=== PATIENT | female | born 1955 | race Asian ===

== ENCOUNTER 2017-07-30 19:33 | Inpatient (IN) | payer OTHER ==
[~2017-07-30] VITALS: Ht 154.9 cm; Wt 60.5 kg
[2017-07-30] MEDS ORDERED: FLUT16H NASAL (19:55)
[2017-07-30] MEDS ORDERED: LISI-661 PO (19:55)
[2017-07-30] MEDS ORDERED: ALBU8.5H8 IH (19:55)
[2017-07-30] MEDS ORDERED: GLIP5 PO (19:55)
[2017-07-30] MEDS ORDERED: ASPI-556 PO (19:55)
[2017-07-30] MEDS ORDERED: KETO5DRO6 OU (19:55)
[2017-07-30 19:57] LABS: GLUCOSE,POINT OF CARE 175 MG/DL (70-110)
[2017-07-30 20:26] LABS: BASOPHILS % (AUTO) 1.3 % (0.0-2.0); HEMATOCRIT 32.6 % (36-46); HEMOGLOBIN 11.2 g/dL (12.0-16.0); LYMPHOCYTES # (AUTO) 1.1 K/uL (1.0-4.8); LYMPHOCYTES % (AUTO) 15.4 % (22.0-44.0); MEAN CORPUSCULAR HEMOGLOBIN 31.4 pg (26.0-34.0); MEAN CORPUSCULAR HGB CONC 34.3 G/dL (31.0-37.0); MEAN CORPUSCULAR VOLUME 92 fL (80-100); MONOCYTES # (AUTO) 0.5 K/uL (0.1-1.0); MONOCYTES % (AUTO) 7.7 % (2.0-9.0); NEUTROPHILS # (AUTO) 5.2 K/uL (1.8-7.7); NEUTROPHILS % (AUTO) 74.6 % (40.0-70.0); PLATELET COUNT (AUTO) 271 K/uL (150-450); RED BLOOD CELL COUNT(AUTO) 3.55 MIL/uL (4.00-5.20); RED CELL DISTRIBUTION WIDTH 12.5 % (11.5-14.5)
[2017-07-30 20:42] LABS: ALBUMIN 2.8 g/dL (3.4-5.0); BILIRUBIN,TOTAL 0.8 mg/dL (0.1-1.0); CALCIUM, TOTAL 9.3 mg/dL (8.8-10.5); CREATININE 2.39 mg/dL (0.60-1.30); POTASSIUM 3.5 mmol/L (3.5-5.1); TOTAL PROTEIN, SERUM 8.1 g/dL (6.4-8.2)
[2017-07-30] MEDS ORDERED: SODIUM CHLORIDE 0.9% 1,000 ML IV ONE (21:45)
[2017-07-30] MEDS ORDERED: MORPHINE SULFATE 4 MG/ML SYRINGE IVP ONE (22:00)
[2017-07-30 22:16] LABS: OSMOLALITY,URINE 170 mOS/kg (50-1200)
[2017-07-30 22:27] LABS: APPEARANCE,URINE CLEAR (CLEAR); BILIRUBIN,URINE NEGATIVE (NEGATIVE); GLUCOSE, URINE (UA) NEGATIVE (NEGATIVE); KETONES,URINE NEGATIVE (NEGATIVE); LEUKOCYTE ESTERASE ,URINE NEGATIVE (NEGATIVE); NITRATE,URINE NEGATIVE (NEGATIVE); OCCULT BLOOD,URINE NEGATIVE (NEGATIVE); PROTEIN,URINE NEGATIVE (NEGATIVE)
[2017-07-30 22:28] LABS: SODIUM,URINE RANDOM 31 mmol/l (20-110)
[2017-07-31] VITALS (7 sets, daily range): BP systolic 88–112; BP diastolic 41–63
[2017-07-31] MEDS ORDERED: PIPERACILLIN/TAZO 3.375 GM/D5W 50 ML IV ONE
[2017-07-31] MEDS ORDERED: ONDANSETRON HCL 4 MG/2 ML VIAL IVP PRN ×2 (01:00→07:30)
[2017-07-31] MEDS ORDERED: ACETAMINOPHEN 325 MG TABLET PO PRN (01:00)
[2017-07-31] MEDS ORDERED: SODIUM CHLORIDE 0.9% 1,000 ML IV ONE ×2 (01:00→07:45)
[2017-07-31] MEDS ORDERED: MORPHINE SULFATE 4 MG/ML SYRINGE IVP PRN (01:00)
[2017-07-31] MEDS ORDERED: 0.9% SODIUM CHLORIDE 10 ML SYRINGE IVP PRN (01:00)
[2017-07-31 01:54] LABS: PROTHROMBIN TIME 10.9 SEC (9.4-11.6)
[2017-07-31] MEDS ORDERED: PNEUMOCOCCAL VACCINE POLYVALENT 0.5 ML VIAL [PPSV23] IM ONE (06:00)
[2017-07-31 06:33] LABS: GLUCOMETER DEV NAME(LOC) 5S 2P; GLUCOSE,POINT OF CARE 108 MG/DL (70-110)
[2017-07-31] MEDS ORDERED: BISACODYL 10 MG RECTAL RECTAL SUPPOSITORY PR PRN (07:30)
[2017-07-31] MEDS ORDERED: DEXTROSE 50%-WATER 25 GM/50 ML SYRINGE IVP PRN (07:45)
[2017-07-31] MEDS ORDERED: RINGERS SOLUTION,LACTATED 0 ML IV ONE (11:22)
[2017-07-31] MEDS ORDERED: SODIUM CL IRRIG SOLN BAG 3,000 ML IRRIG ONE (11:26)
[2017-07-31] MEDS ORDERED: RINGERS SOLUTION,LACTATED 1,000 ML IV ONE ×2 (11:26→11:30)
[2017-07-31] MEDS ORDERED: LIDOCAINE HCL 1%/EPI 1:200,000/PF 30 ML VIAL ONE (11:26)
[2017-07-31] MEDS ORDERED: IOHEXOL 240 MG/ML 20 ML VIAL ONE (11:26)
[2017-07-31 13:27] LABS: GLUCOMETER DEV NAME(LOC) 5S 1M; GLUCOSE,POINT OF CARE 118 MG/DL (70-110)
[2017-07-31] MEDS: PANTOPRAZOLE SODIUM 40 MG/VIAL IVP SCH (14:30)
[2017-07-31] MEDS: DOCUSATE SODIUM 100 MG CAPSULE PO SCH ×2 (14:30→20:28)
[2017-07-31] MEDS: PIPERACILLIN SODIUM/TAZOBACTAM 2.25 GM in DEXTROSE 5%-WATER 50 ML IV SCH ×2 (14:31→17:43)
[2017-07-31] MEDS: ACETAMINOPHEN 325 MG TABLET PO PRN (23:21)
[2017-08-01] MEDS: PIPERACILLIN SODIUM/TAZOBACTAM 2.25 GM in DEXTROSE 5%-WATER 50 ML IV SCH ×4 (02:01→21:54)
[2017-08-01 05:39] VITALS: BP 88/60
[2017-08-01 06:23] LABS: BASOPHILS % (AUTO) 1.5 % (0.0-2.0); EOSINOPHILS % (AUTO) 2.2 % (1.0-6.0); HEMATOCRIT 30.5 % (36-46); HEMOGLOBIN 10.4 g/dL (12.0-16.0); LYMPHOCYTES # (AUTO) 1.2 K/uL (1.0-4.8); LYMPHOCYTES % (AUTO) 30.7 % (22.0-44.0); MEAN CORPUSCULAR HEMOGLOBIN 31.6 pg (26.0-34.0); MEAN CORPUSCULAR HGB CONC 34.2 G/dL (31.0-37.0); MEAN CORPUSCULAR VOLUME 92 fL (80-100); MONOCYTES # (AUTO) 0.3 K/uL (0.1-1.0); MONOCYTES % (AUTO) 7.6 % (2.0-9.0); NEUTROPHILS # (AUTO) 2.2 K/uL (1.8-7.7); PLATELET COUNT (AUTO) 210 K/uL (150-450); RED CELL DISTRIBUTION WIDTH 12.7 % (11.5-14.5)
[2017-08-01 06:32] LABS: CALCIUM, TOTAL 8.9 mg/dL (8.8-10.5); CREATININE 1.62 mg/dL (0.60-1.30); POTASSIUM 4.7 mmol/L (3.5-5.1)
[2017-08-01 07:17] VITALS: BP 103/59
[2017-08-01] MEDS: DOCUSATE SODIUM 100 MG CAPSULE PO SCH ×2 (07:30→20:19)
[2017-08-01] MEDS: PANTOPRAZOLE SODIUM 40 MG/VIAL IVP SCH (07:58)
[2017-08-01] MEDS: ACETAMINOPHEN 325 MG TABLET PO PRN ×2 (07:58→17:58)
[2017-08-01 08:52] LABS: GLUCOMETER DEV NAME(LOC) 5S 2P; GLUCOSE,POINT OF CARE 119 MG/DL (70-110)
[2017-08-01 08:52] LABS: GLUCOMETER DEV NAME(LOC) 5S 2P; GLUCOSE,POINT OF CARE 94 MG/DL (70-110)
[2017-08-01] MEDS ORDERED: SODIUM CHLORIDE 0.9% 100 ML ONE (10:26)
[2017-08-01] MEDS: INSULIN LISPRO 100 UNITS/ML SQ PRN ×2 (11:46→20:32)
[2017-08-01 11:53] VITALS: BP 90/54
[2017-08-01 15:29] VITALS: BP 97/55
[2017-08-01 16:13] LABS: GLUCOMETER DEV NAME(LOC) 5N 1P; GLUCOSE,POINT OF CARE 168 MG/DL (70-110)
[2017-08-01 16:13] LABS: GLUCOMETER DEV NAME(LOC) 5N 1P; GLUCOSE,POINT OF CARE 96 MG/DL (70-110)
[2017-08-01 19:58] LABS: GLUCOMETER DEV NAME(LOC) 5S 2P; GLUCOSE,POINT OF CARE 109 MG/DL (70-110)
[2017-08-01 20:07] VITALS: BP 95/51
[2017-08-02 00:49] VITALS: BP 96/54
[2017-08-02 03:48] LABS: GLUCOMETER DEV NAME(LOC) 5S 2P; GLUCOSE,POINT OF CARE 168 MG/DL (70-110)
[2017-08-02] MEDS: PIPERACILLIN SODIUM/TAZOBACTAM 2.25 GM in DEXTROSE 5%-WATER 50 ML IV SCH ×4 (03:54→20:57)
[2017-08-02 03:58] VITALS: BP 111/60
[2017-08-02 07:09] VITALS: BP 107/56
[2017-08-02 07:13] LABS: EOSINOPHILS % (AUTO) 2.4 % (1.0-6.0); HEMATOCRIT 34.4 % (36-46); HEMOGLOBIN 11.9 g/dL (12.0-16.0); LYMPHOCYTES % (AUTO) 26.9 % (22.0-44.0); MEAN CORPUSCULAR HEMOGLOBIN 32.1 pg (26.0-34.0); MEAN CORPUSCULAR HGB CONC 34.5 G/dL (31.0-37.0); MEAN CORPUSCULAR VOLUME 93 fL (80-100); MONOCYTES # (AUTO) 0.3 K/uL (0.1-1.0); MONOCYTES % (AUTO) 7.4 % (2.0-9.0); NEUTROPHILS # (AUTO) 2.4 K/uL (1.8-7.7); NEUTROPHILS % (AUTO) 61.3 % (40.0-70.0); PLATELET COUNT (AUTO) 209 K/uL (150-450); RED CELL DISTRIBUTION WIDTH 12.8 % (11.5-14.5)
[2017-08-02 07:28] LABS: ALBUMIN 2.5 g/dL (3.4-5.0); BILIRUBIN,TOTAL 0.6 mg/dL (0.1-1.0); CALCIUM, TOTAL 9.3 mg/dL (8.8-10.5); CREATININE 1.54 mg/dL (0.60-1.30); POTASSIUM 4.7 mmol/L (3.5-5.1); TOTAL PROTEIN, SERUM 7.1 g/dL (6.4-8.2)
[2017-08-02] MEDS: PANTOPRAZOLE SODIUM 40 MG/VIAL IVP SCH (08:33)
[2017-08-02] MEDS: FLUoxetine HCL 20 MG CAPSULE PO SCH (08:33)
[2017-08-02] MEDS: DOCUSATE SODIUM 100 MG CAPSULE PO SCH ×2 (08:33→20:57)
[2017-08-02 11:02] VITALS: BP 102/66
[2017-08-02] MEDS: INSULIN LISPRO 100 UNITS/ML SQ PRN ×2 (12:12→21:01)
[2017-08-02 15:04] VITALS: BP 116/77
[2017-08-02] MEDS: ACETAMINOPHEN 325 MG TABLET PO PRN (16:52)
[2017-08-02 20:13] LABS: GLUCOMETER DEV NAME(LOC) 5N 1P; GLUCOSE,POINT OF CARE 128 MG/DL (70-110)
[2017-08-02 20:27] VITALS: BP 94/51
[2017-08-02 23:24] LABS: GLUCOMETER DEV NAME(LOC) 5N 2S; GLUCOSE,POINT OF CARE 84 MG/DL (70-110)
[2017-08-02 23:24] LABS: GLUCOMETER DEV NAME(LOC) 5N 2S; GLUCOSE,POINT OF CARE 172 MG/DL (70-110)
[2017-08-02 23:24] LABS: GLUCOMETER DEV NAME(LOC) 5N 2S; GLUCOSE,POINT OF CARE 182 MG/DL (70-110)
[2017-08-03] VITALS (7 sets, daily range): BP systolic 96–138; BP diastolic 52–80
[2017-08-03] MEDS: PIPERACILLIN SODIUM/TAZOBACTAM 2.25 GM in DEXTROSE 5%-WATER 50 ML IV SCH ×3 (05:09→22:14)
[2017-08-03] MEDS: FLUoxetine HCL 20 MG CAPSULE PO SCH (08:03)
[2017-08-03] MEDS: DOCUSATE SODIUM 100 MG CAPSULE PO SCH ×2 (08:03→20:06)
[2017-08-03] MEDS: PANTOPRAZOLE SODIUM 40 MG/VIAL IVP SCH (08:11)
[2017-08-03 13:08] LABS: GLUCOMETER DEV NAME(LOC) 5N 2S; GLUCOSE,POINT OF CARE 129 MG/DL (70-110)
[2017-08-03 13:08] LABS: GLUCOMETER DEV NAME(LOC) 5N 2S; GLUCOSE,POINT OF CARE 94 MG/DL (70-110)
[2017-08-03] MEDS ORDERED: RINGERS SOLUTION,LACTATED 1,000 ML IV ONE ×2 (13:30→16:44)
[2017-08-03] MEDS ORDERED: IOHEXOL 240 MG/ML 20 ML VIAL ONE (13:33)
[2017-08-03] MEDS ORDERED: SODIUM CL IRRIG SOLN BAG 3,000 ML IRRIG ONE (13:33)
[2017-08-03] MEDS ORDERED: LIDOCAINE HCL 1%/EPI 1:200,000/PF 30 ML VIAL ONE (13:33)
[2017-08-03] MEDS ORDERED: SODIUM CHLORIDE 0.9% 1,000 ML IV ONE (16:33)
[2017-08-03] MEDS ORDERED: BUPIVACAINE LIPOSOME/PF 1.3%-13.3MG/ML SUSPENSION 20 ML VIAL INJ ONE (16:45)
[2017-08-03] MEDS ORDERED: BUPIVACAINE HCL/PF 0.5% 30 ML VIAL ONE (16:52)
[2017-08-03] MEDS ORDERED: FentaNYL CITRATE-PF 100 MCG/2 ML VIAL IVP PRN (17:45)
[2017-08-03] MEDS ORDERED: HYDROmorphone 2 MG/ML SYRINGE IVP PRN (17:45)
[2017-08-03] MEDS: OXYGEN THERAPY IH SCH (20:00)
[2017-08-03] MEDS: MORPHINE SULFATE 4 MG/ML SYRINGE IVP PRN (20:51)
[2017-08-03] MEDS ORDERED: SODIUM CHLORIDE 0.9% 250 ML IV ONE (22:13)
[2017-08-04] VITALS (10 sets, daily range): BP systolic 103–165; BP diastolic 57–90
[2017-08-04] MEDS: MORPHINE SULFATE 4 MG/ML SYRINGE IVP PRN ×4 (00:10→09:38)
[2017-08-04] MEDS: PIPERACILLIN SODIUM/TAZOBACTAM 2.25 GM in DEXTROSE 5%-WATER 50 ML IV SCH ×4 (04:19→21:06)
[2017-08-04] MEDS ORDERED: METOCLOPRAMIDE HCL 5 MG/ML 2 ML VIAL IVP ONE (05:34)
[2017-08-04] MEDS ORDERED: FentaNYL CITRATE-PF 100 MCG/2 ML VIAL IVP ONE (05:34)
[2017-08-04] MEDS ORDERED: NEOSTIGMINE METHYLSULFATE 1 MG/ML 10 ML VIAL IVP ONE (05:34)
[2017-08-04] MEDS ORDERED: DEXAMETHASONE SOD PHOS 4 MG/ML VIAL IVP ONE (05:34)
[2017-08-04] MEDS ORDERED: ONDANSETRON HCL 4 MG/2 ML VIAL IVP ONE (05:34)
[2017-08-04] MEDS ORDERED: PROPOFOL 1% 20 ML VIAL IVP ONE (05:34)
[2017-08-04] MEDS ORDERED: ROCURONIUM BROMIDE 10 MG/ML 5 ML VIAL IVP ONE (05:34)
[2017-08-04] MEDS ORDERED: GLYCOPYRROLATE 0.2 MG/ML VIAL IM ONE (05:34)
[2017-08-04] MEDS ORDERED: LIDOCAINE HCL/PF 2% 5 ML VIAL IM ONE (05:34)
[2017-08-04] MEDS ORDERED: MIDAZOLAM HCL 2 MG/2 ML VIAL IVP ONE (05:34)
[2017-08-04 05:52] LABS: BASOPHILS % (AUTO) 0.4 % (0.0-2.0); EOSINOPHILS % (AUTO) 0 % (1.0-6.0); HEMATOCRIT 31.1 % (36-46); HEMOGLOBIN 10.6 g/dL (12.0-16.0); LYMPHOCYTES % (AUTO) 3.6 % (22.0-44.0); MEAN CORPUSCULAR HEMOGLOBIN 31.5 pg (26.0-34.0); MEAN CORPUSCULAR HGB CONC 34.1 G/dL (31.0-37.0); MEAN CORPUSCULAR VOLUME 92 fL (80-100); MONOCYTES % (AUTO) 3.5 % (2.0-9.0); NEUTROPHILS # (AUTO) 26.5 K/uL (1.8-7.7); PLATELET COUNT (AUTO) 276 K/uL (150-450); RED BLOOD CELL COUNT(AUTO) 3.36 MIL/uL (4.00-5.20); RED CELL DISTRIBUTION WIDTH 12.9 % (11.5-14.5)
[2017-08-04 05:54] LABS: NEUTROPHILS % (AUTO) 92.5 % (40.0-70.0)
[2017-08-04 06:14] LABS: ALBUMIN 2.3 g/dL (3.4-5.0); BILIRUBIN,TOTAL 0.6 mg/dL (0.1-1.0); CALCIUM, TOTAL 8.3 mg/dL (8.8-10.5); CREATININE 2.45 mg/dL (0.60-1.30); TOTAL PROTEIN, SERUM 6.9 g/dL (6.4-8.2)
[2017-08-04 06:25] LABS: POTASSIUM 6.2 mmol/L (3.5-5.1)
[2017-08-04 07:42] LABS: GLUCOMETER DEV NAME(LOC) 5N 2S; GLUCOSE,POINT OF CARE 207 MG/DL (70-110)
[2017-08-04] MEDS: OXYGEN THERAPY IH SCH ×2 (08:00→20:00)
[2017-08-04] MEDS: FLUoxetine HCL 20 MG CAPSULE PO SCH (08:33)
[2017-08-04] MEDS: DOCUSATE SODIUM 100 MG CAPSULE PO SCH ×2 (08:34→21:06)
[2017-08-04] MEDS: PANTOPRAZOLE SODIUM 40 MG/VIAL IVP SCH (08:52)
[2017-08-04] MEDS ORDERED: SODIUM CHLORIDE 0.9% 1,000 ML IV ONE (10:15)
[2017-08-04] MEDS: INSULIN LISPRO 100 UNITS/ML SQ PRN ×4 (10:32→21:23)
[2017-08-04 12:13] LABS: GLUCOMETER DEV NAME(LOC) 5S 1M; GLUCOSE,POINT OF CARE 240 MG/DL (70-110)
[2017-08-04 12:13] LABS: GLUCOMETER DEV NAME(LOC) 5S 1M; GLUCOSE,POINT OF CARE 262 MG/DL (70-110)
[2017-08-04] MEDS ORDERED: SODIUM CHLORIDE 0.9% 1,000 ML IV SCH (12:30)
[2017-08-04] MEDS: HYDROmorphone 2 MG/ML SYRINGE IVP PRN ×3 (13:04→21:08)
[2017-08-04] MEDS ORDERED: INSULIN REGULAR, HUMAN 100 UNITS/ML IVP ONE (14:15)
[2017-08-04] MEDS: HEPARIN SODIUM,PORCINE 5,000 UNITS/ML VIAL SQ SCH ×2 (15:38→21:06)
[2017-08-04 16:57] LABS: CALCIUM, TOTAL 8.9 mg/dL (8.8-10.5); CREATININE 3.21 mg/dL (0.60-1.30); POTASSIUM 4.8 mmol/L (3.5-5.1)
[2017-08-04] MEDS: SODIUM BICARBONATE 75 MEQ in SODIUM CHLORIDE 0.45% 1,000 ML IV SCH (18:50)
[2017-08-04 19:37] LABS: LACTIC ACID 3.9 mmol/L (0.4-2.0)
[2017-08-04 19:53] LABS: GLUCOMETER DEV NAME(LOC) 5S 1M; GLUCOSE,POINT OF CARE 185 MG/DL (70-110)
[2017-08-04 19:53] LABS: GLUCOMETER DEV NAME(LOC) 5S 1M; GLUCOSE,POINT OF CARE 250 MG/DL (70-110)
[2017-08-04 19:53] LABS: GLUCOMETER DEV NAME(LOC) 5N 2S; GLUCOSE,POINT OF CARE 219 MG/DL (70-110)
[2017-08-04 22:17] LABS: GLUCOMETER DEV NAME(LOC) 5N 2S; GLUCOSE,POINT OF CARE 177 MG/DL (70-110)
[2017-08-05] MEDS: HYDROmorphone 2 MG/ML SYRINGE IVP PRN ×5 (00:58→21:00)
[2017-08-05 01:03] LABS: CREATININE,URINE RANDOM 207.1 mg/dL (30.0-125.0)
[2017-08-05 01:04] LABS: PROTEIN,URINE RANDOM 82 mg/dL (0-11.9); SODIUM,URINE RANDOM 28 mmol/l (20-110)
[2017-08-05 01:16] LABS: APPEARANCE,URINE CLOUDY (CLEAR); PROTEIN,URINE POS 1+ (NEGATIVE)
[2017-08-05 01:17] LABS: BILIRUBIN,URINE NEGATIVE (NEGATIVE); GLUCOSE, URINE (UA) NEGATIVE (NEGATIVE); KETONES,URINE 15 mg/dL (NEGATIVE); LEUKOCYTE ESTERASE ,URINE NEGATIVE (NEGATIVE); NITRATE,URINE NEGATIVE (NEGATIVE); OCCULT BLOOD,URINE SMALL (NEGATIVE); UROBILINOGEN,URINE 0.2 mg/dL (<=1.0)
[2017-08-05 01:18] LABS: BACTERIA,URINE Rare /HPF (None Seen); SQUAMOUS EPITHELIAL CELL,UR Moderate /LPF (None Seen)
[2017-08-05] MEDS: PIPERACILLIN SODIUM/TAZOBACTAM 2.25 GM in DEXTROSE 5%-WATER 50 ML IV SCH ×3 (03:54→20:23)
[2017-08-05] MEDS: SODIUM BICARBONATE 75 MEQ in SODIUM CHLORIDE 0.45% 1,000 ML IV SCH ×2 (03:54→13:14)
[2017-08-05 04:09] VITALS: BP 129/69
[2017-08-05 06:29] LABS: BASOPHILS % (AUTO) 0.2 % (0.0-2.0); EOSINOPHILS % (AUTO) 0 % (1.0-6.0); HEMATOCRIT 24.9 % (36-46); HEMOGLOBIN 8.4 g/dL (12.0-16.0); LYMPHOCYTES # (AUTO) 1.6 K/uL (1.0-4.8); LYMPHOCYTES % (AUTO) 7.9 % (22.0-44.0); MEAN CORPUSCULAR HEMOGLOBIN 31.3 pg (26.0-34.0); MEAN CORPUSCULAR HGB CONC 33.9 G/dL (31.0-37.0); MEAN CORPUSCULAR VOLUME 92 fL (80-100); MONOCYTES % (AUTO) 5.2 % (2.0-9.0); NEUTROPHILS # (AUTO) 17.3 K/uL (1.8-7.7); PLATELET COUNT (AUTO) 179 K/uL (150-450); RED CELL DISTRIBUTION WIDTH 12.9 % (11.5-14.5)
[2017-08-05 06:43] LABS: GLUCOMETER DEV NAME(LOC) 5S 1M; GLUCOSE,POINT OF CARE 144 MG/DL (70-110)
[2017-08-05 06:48] LABS: CALCIUM, TOTAL 8.4 mg/dL (8.8-10.5); CREATININE 2.53 mg/dL (0.60-1.30); MAGNESIUM 1.2 mg/dL (1.80-2.40); POTASSIUM 4.7 mmol/L (3.5-5.1)
[2017-08-05 06:52] LABS: NEUTROPHILS % (AUTO) 86.7 % (40.0-70.0)
[2017-08-05] MEDS: OXYGEN THERAPY IH SCH ×2 (08:00→20:00)
[2017-08-05] MEDS: DOCUSATE SODIUM 100 MG CAPSULE PO SCH ×2 (08:10→21:02)
[2017-08-05] MEDS: FLUoxetine HCL 20 MG CAPSULE PO SCH (08:10)
[2017-08-05] MEDS: PANTOPRAZOLE SODIUM 40 MG/VIAL IVP SCH (08:10)
[2017-08-05] MEDS: HEPARIN SODIUM,PORCINE 5,000 UNITS/ML VIAL SQ SCH ×3 (08:10→21:02)
[2017-08-05 08:11] VITALS: BP 123/68
[2017-08-05] MEDS: ACETAMINOPHEN 325 MG TABLET PO PRN (08:11)
[2017-08-05] MEDS ORDERED: MAGNESIUM SULFATE 2 GM in DEXTROSE 5%-WATER 50 ML IV ONE (08:45)
[2017-08-05] MEDS ORDERED: SODIUM CHLORIDE 0.9% 100 ML ONE (09:44)
[2017-08-05 12:05] VITALS: BP 107/56
[2017-08-05] MEDS: INSULIN LISPRO 100 UNITS/ML SQ PRN (12:06)
[2017-08-05 16:13] VITALS: BP 107/59
[2017-08-05 17:08] VITALS: BP 122/72
[2017-08-05 20:30] VITALS: BP 111/62
[2017-08-06] VITALS (8 sets, daily range): BP systolic 92–136; BP diastolic 53–69
[2017-08-06] MEDS: HYDROmorphone 2 MG/ML SYRINGE IVP PRN ×4 (01:01→18:21)
[2017-08-06] MEDS: ACETAMINOPHEN 325 MG TABLET PO PRN ×3 (02:00→20:30)
[2017-08-06] MEDS: SODIUM BICARBONATE 75 MEQ in SODIUM CHLORIDE 0.45% 1,000 ML IV SCH (03:17)
[2017-08-06] MEDS: PIPERACILLIN SODIUM/TAZOBACTAM 2.25 GM in DEXTROSE 5%-WATER 50 ML IV SCH ×4 (03:20→21:49)
[2017-08-06 06:56] LABS: ALBUMIN 1.7 g/dL (3.4-5.0); BILIRUBIN,TOTAL 0.6 mg/dL (0.1-1.0); CALCIUM, TOTAL 7.7 mg/dL (8.8-10.5); CREATININE 1.49 mg/dL (0.60-1.30); POTASSIUM 3.6 mmol/L (3.5-5.1); TOTAL PROTEIN, SERUM 5.4 g/dL (6.4-8.2)
[2017-08-06] MEDS: OXYGEN THERAPY IH SCH ×2 (08:00→20:00)
[2017-08-06] MEDS: PANTOPRAZOLE SODIUM 40 MG/VIAL IVP SCH (08:06)
[2017-08-06] MEDS: DOCUSATE SODIUM 100 MG CAPSULE PO SCH ×2 (08:07→20:31)
[2017-08-06] MEDS: HEPARIN SODIUM,PORCINE 5,000 UNITS/ML VIAL SQ SCH ×3 (08:07→20:29)
[2017-08-06] MEDS: FLUoxetine HCL 20 MG CAPSULE PO SCH (08:07)
[2017-08-06 11:04] LABS: MAGNESIUM 1.5 mg/dL (1.80-2.40)
[2017-08-06] MEDS ORDERED: MAGNESIUM SULFATE 1 GM in DEXTROSE 5%-WATER 50 ML IV ONE (11:15)
[2017-08-06] MEDS: POTASSIUM CHLORIDE 10 MEQ in SODIUM CHLORIDE 0.9% 1,000 ML IV SCH ×2 (11:27→23:59)
[2017-08-06 11:33] LABS: GLUCOMETER DEV NAME(LOC) 5N 2S; GLUCOSE,POINT OF CARE 135 MG/DL (70-110)
[2017-08-06 11:33] LABS: GLUCOMETER DEV NAME(LOC) 5N 2S; GLUCOSE,POINT OF CARE 145 MG/DL (70-110)
[2017-08-06 11:33] LABS: GLUCOMETER DEV NAME(LOC) 5N 2S; GLUCOSE,POINT OF CARE 138 MG/DL (70-110)
[2017-08-06] MEDS: INSULIN LISPRO 100 UNITS/ML SQ PRN ×3 (12:13→20:30)
[2017-08-06 18:03] LABS: GLUCOMETER DEV NAME(LOC) 5S 1M; GLUCOSE,POINT OF CARE 162 MG/DL (70-110)
[2017-08-06 18:03] LABS: GLUCOMETER DEV NAME(LOC) 5S 1M; GLUCOSE,POINT OF CARE 117 MG/DL (70-110)
[2017-08-06 18:03] LABS: GLUCOMETER DEV NAME(LOC) 5S 1M; GLUCOSE,POINT OF CARE 139 MG/DL (70-110)
[2017-08-07] VITALS (23 sets, daily range): BP systolic 100–150; BP diastolic 58–89
[2017-08-07] MEDS: HYDROmorphone 2 MG/ML SYRINGE IVP PRN ×3 (01:03→23:48)
[2017-08-07] MEDS: PIPERACILLIN SODIUM/TAZOBACTAM 2.25 GM in DEXTROSE 5%-WATER 50 ML IV SCH ×4 (03:43→21:02)
[2017-08-07] MEDS: ACETAMINOPHEN 325 MG TABLET PO PRN ×2 (06:09→21:02)
[2017-08-07] MEDS: INSULIN LISPRO 100 UNITS/ML SQ PRN ×2 (06:13→12:58)
[2017-08-07 07:10] LABS: BASOPHILS % (AUTO) 0.4 % (0.0-2.0); EOSINOPHILS % (AUTO) 1.4 % (1.0-6.0); HEMOGLOBIN 7.1 g/dL (12.0-16.0); LYMPHOCYTES # (AUTO) 0.8 K/uL (1.0-4.8); MEAN CORPUSCULAR HEMOGLOBIN 32.8 pg (26.0-34.0); MEAN CORPUSCULAR HGB CONC 35.6 G/dL (31.0-37.0); MEAN CORPUSCULAR VOLUME 92 fL (80-100); MONOCYTES # (AUTO) 0.3 K/uL (0.1-1.0); NEUTROPHILS # (AUTO) 6.5 K/uL (1.8-7.7); NEUTROPHILS % (AUTO) 84.2 % (40.0-70.0); RED BLOOD CELL COUNT(AUTO) 2.16 MIL/uL (4.00-5.20); RED CELL DISTRIBUTION WIDTH 13.3 % (11.5-14.5)
[2017-08-07 07:16] LABS: HEMATOCRIT 19.9 % (36-46)
[2017-08-07 07:26] LABS: CALCIUM, TOTAL 7.9 mg/dL (8.8-10.5); CREATININE 1.34 mg/dL (0.60-1.30); MAGNESIUM 1.8 mg/dL (1.80-2.40)
[2017-08-07 07:58] LABS: BASOPHILS % (AUTO) 0.8 % (0.0-2.0); LYMPHOCYTES # (AUTO) 0.7 K/uL (1.0-4.8); LYMPHOCYTES % (AUTO) 9.3 % (22.0-44.0); MEAN CORPUSCULAR HEMOGLOBIN 31.7 pg (26.0-34.0); MEAN CORPUSCULAR HGB CONC 34.6 G/dL (31.0-37.0); MEAN CORPUSCULAR VOLUME 92 fL (80-100); MONOCYTES # (AUTO) 0.3 K/uL (0.1-1.0); MONOCYTES % (AUTO) 3.4 % (2.0-9.0); NEUTROPHILS # (AUTO) 6.3 K/uL (1.8-7.7); PLATELET COUNT (AUTO) 121 K/uL (150-450); RED BLOOD CELL COUNT(AUTO) 2.01 MIL/uL (4.00-5.20); RED CELL DISTRIBUTION WIDTH 13.4 % (11.5-14.5)
[2017-08-07 08:08] LABS: GLUCOMETER DEV NAME(LOC) 5N 2S; GLUCOSE,POINT OF CARE 142 MG/DL (70-110)
[2017-08-07 08:08] LABS: GLUCOMETER DEV NAME(LOC) 5S 1M; GLUCOSE,POINT OF CARE 166 MG/DL (70-110)
[2017-08-07 08:08] LABS: NEUTROPHILS % (AUTO) 85.5 % (40.0-70.0)
[2017-08-07 08:09] LABS: HEMOGLOBIN 6.4 g/dL (12.0-16.0)
[2017-08-07 08:10] LABS: HEMATOCRIT 18.4 % (36-46)
[2017-08-07] MEDS: PANTOPRAZOLE SODIUM 40 MG/VIAL IVP SCH (08:29)
[2017-08-07] MEDS: FLUoxetine HCL 20 MG CAPSULE PO SCH (08:30)
[2017-08-07] MEDS: DOCUSATE SODIUM 100 MG CAPSULE PO SCH ×2 (08:30→21:02)
[2017-08-07] MEDS ORDERED: ACETAMINOPHEN 325 MG TABLET PO ONE (08:30)
[2017-08-07] MEDS ORDERED: DiphenhydrAMINE HCL 25 MG CAPSULE PO ONE (08:30)
[2017-08-07 08:31] LABS: PLATELET COUNT (AUTO) 119 K/uL (150-450)
[2017-08-07] MEDS: OXYGEN THERAPY IH SCH ×2 (08:31→20:00)
[2017-08-07] MEDS: HEPARIN SODIUM,PORCINE 5,000 UNITS/ML VIAL SQ SCH (09:00)
[2017-08-07] MEDS ORDERED: SODIUM CHLORIDE 0.9% 250 ML IV ONE (12:15)
[2017-08-08 00:57] VITALS: BP 151/85
[2017-08-08 03:22] LABS: GLUCOMETER DEV NAME(LOC) 5N 2S; GLUCOSE,POINT OF CARE 103 MG/DL (70-110)
[2017-08-08 03:22] LABS: GLUCOMETER DEV NAME(LOC) 5N 2S; GLUCOSE,POINT OF CARE 161 MG/DL (70-110)
[2017-08-08] MEDS: PIPERACILLIN SODIUM/TAZOBACTAM 2.25 GM in DEXTROSE 5%-WATER 50 ML IV SCH ×2 (03:33→09:08)
[2017-08-08] MEDS ORDERED: SODIUM CHLORIDE 0.9% 250 ML IV ONE (03:35)
[2017-08-08 04:10] VITALS: BP 155/83
[2017-08-08 06:10] LABS: CALCIUM, TOTAL 8.2 mg/dL (8.8-10.5); CREATININE 1.29 mg/dL (0.60-1.30); POTASSIUM 4.2 mmol/L (3.5-5.1)
[2017-08-08 07:31] VITALS: BP 148/68
[2017-08-08 07:43] LABS: GLUCOMETER DEV NAME(LOC) 5S 1M; GLUCOSE,POINT OF CARE 112 MG/DL (70-110)
[2017-08-08 07:43] LABS: GLUCOMETER DEV NAME(LOC) 5S 1M; GLUCOSE,POINT OF CARE 122 MG/DL (70-110)
[2017-08-08] MEDS: OXYGEN THERAPY IH SCH (08:00)
[2017-08-08] MEDS: PANTOPRAZOLE SODIUM 40 MG/VIAL IVP SCH (09:08)
[2017-08-08] MEDS: FLUoxetine HCL 20 MG CAPSULE PO SCH (09:08)
[2017-08-08] MEDS: DOCUSATE SODIUM 100 MG CAPSULE PO SCH (09:08)
[2017-08-08 09:17] LABS: HEMATOCRIT 30.2 % (36-46); HEMOGLOBIN 10.7 g/dL (12.0-16.0); LYMPHOCYTES # (AUTO) 0.8 K/uL (1.0-4.8); LYMPHOCYTES % (AUTO) 10.9 % (22.0-44.0); MEAN CORPUSCULAR HEMOGLOBIN 31.9 pg (26.0-34.0); MEAN CORPUSCULAR HGB CONC 35.5 G/dL (31.0-37.0); MEAN CORPUSCULAR VOLUME 90 fL (80-100); MONOCYTES # (AUTO) 0.4 K/uL (0.1-1.0); MONOCYTES % (AUTO) 4.9 % (2.0-9.0); NEUTROPHILS # (AUTO) 6.1 K/uL (1.8-7.7); NEUTROPHILS % (AUTO) 81.2 % (40.0-70.0); PLATELET COUNT (AUTO) 155 K/uL (150-450); RED BLOOD CELL COUNT(AUTO) 3.36 MIL/uL (4.00-5.20)
[2017-08-08 11:12] VITALS: BP 150/83
[2017-08-08] MEDS: HYDROmorphone 2 MG/ML SYRINGE IVP PRN (14:35)
[2017-08-08 15:12] VITALS: BP 178/100
[2017-08-08 15:56] VITALS: BP 150/88
[2017-08-09 01:03] LABS: GLUCOMETER DEV NAME(LOC) 5S 1M; GLUCOSE,POINT OF CARE 137 MG/DL (70-110)
== END 2017-08-08 16:24 | DRG 262 ==
LOC: EMS 19:34 → 5S 22:00 → 6N 08-08 12:20
PROVIDERS: ADMIT Internal Medicine; ATTEND Internal Medicine
PROC: 0DN90ZZ Release Duodenum, Open Approach (ICD-10-PCS; 2017-08-03)
PROC: 0DN Gastrointestinal System, Release (ICD-10-PCS; 2017-08-03)
PROC: 0DUU07Z Supplement Omentum with Autologous Tissue Substitute, Open Approach (ICD-10-PCS; 2017-08-03)
PROC: 0FJ44ZZ Inspection of Gallbladder, Percutaneous Endoscopic Approach (ICD-10-PCS; 2017-08-03)
PROC: 0FT40ZZ Resection of Gallbladder, Open Approach (ICD-10-PCS; principal; 2017-08-03 14:30)
PROC: 30233N1 Transfusion of Nonautologous Red Blood Cells into Peripheral Vein, Percutaneous Approach (ICD-10-PCS; 2017-08-07)
DX: K80.12 Calculus of gallbladder with acute and chronic cholecystitis without obstruction (principal); K85.10 Biliary acute pancreatitis without necrosis or infection; N17.9 Acute kidney failure, unspecified; E44.0 Moderate protein-calorie malnutrition; F33.2 Major depressive disorder, recurrent severe without psychotic features; E11.21 Type 2 diabetes mellitus with diabetic nephropathy; N18.3 Chronic kidney disease, stage 3 (moderate); D62 Acute posthemorrhagic anemia; E11.22 Type 2 diabetes mellitus with diabetic chronic kidney disease; E11.65 Type 2 diabetes mellitus with hyperglycemia; E78.5 Hyperlipidemia, unspecified; E87.1 Hypo-osmolality and hyponatremia; E87.5 Hyperkalemia; F39 Unspecified mood [affective] disorder; F41.9 Anxiety disorder, unspecified; I12.9 Hypertensive chronic kidney disease with stage 1 through stage 4 chronic kidney disease, or unspecified chronic kidney disease; K66.0 Peritoneal adhesions (postprocedural) (postinfection); K82.8 Other specified diseases of gallbladder; Z53.31 Laparoscopic surgical procedure converted to open procedure; Z91.19 Patient's noncompliance with other medical treatment and regimen; Z87.891 Personal history of nicotine dependence; Z91.5 Personal history of self-harm; Z81.8 Family history of other mental and behavioral disorders; Z68.25 Body mass index [BMI] 25.0-25.9, adult
CPT/HCPCS: 76705; 82570; 83605; 83735; 83935; 84156; 84300; 86850; 86900; 86901; 86920; 87040; 88304; 93005; 96361; 96374; 97116; 97162; 97530; 99285; C9113; C9290; J1100; J1170; J1644; J1815; J2250; J2270; J2405; J2543; J2704; J2765; J3010; J3475; J3480; J3490; J7030; J7050; J7060; J7120; P9016; Q9966

== ENCOUNTER 2019-06-03 18:45 | Emergency (ER) | payer MEDICARE, OTHER ==
[~2019-06-03] VITALS: Ht 154.9 cm; Wt 60.0 kg
[~2019-06-03 18:45] MED LIST: ALBU8.5H8 IH; ASPI-556 PO; FLUT16H NASAL; GLIP5 PO; KETO5DRO6 OU; LISI-661 PO
[2019-06-03 19:06] LABS: GLUCOSE,POINT OF CARE 212 MG/DL (70-110)
[2019-06-03] MEDS ORDERED: ACETAMINOPHEN/CODEINE 300-30 MG TABLET PO ONE (21:00)
[2019-06-03] MEDS ORDERED: IBUPROFEN 600 MG TABLET PO ONE (21:00)
[2019-06-03 23:30] VITALS: BP 127/83
== END 2019-06-03 23:30 | disposition home or self-care (01) ==
LOC: EMS 18:45
DX: S93.691A Other sprain of right foot, initial encounter (principal); S40.012A Contusion of left shoulder, initial encounter; E11.9 Type 2 diabetes mellitus without complications; I10 Essential (primary) hypertension; F32.9 Major depressive disorder, single episode, unspecified; Z87.891 Personal history of nicotine dependence; Z79.899 Other long term (current) drug therapy; Z79.84 Long term (current) use of oral hypoglycemic drugs; Z79.82 Long term (current) use of aspirin; W18.39XA Other fall on same level, initial encounter; Y93.89 Activity, other specified; Y92.89 Other specified places as the place of occurrence of the external cause; Y99.8 Other external cause status

== ENCOUNTER 2023-04-04 16:06 | Emergency (ER) | payer MEDICARE, OTHER ==
[~2023-04-04] VITALS: Ht 154.9 cm; Wt 58.2 kg
[~2023-04-04 16:06] MED LIST changes: -FLUT16H NASAL; +FLUT16SP NASAL; -GLIP5 PO; +GLIP5TAB16 PO; +KETO-99 OU; -KETO5DRO6 OU; -LISI-661 PO; +LISI-893 PO
[2023-04-04] MEDS ORDERED: TRAZ-252 PO (16:28)
[2023-04-04] MEDS ORDERED: LOSA-382 PO (16:28)
[2023-04-04] MEDS ORDERED: ATOR40TA28 PO (16:28)
[2023-04-04] MEDS ORDERED: FLUO20CA36 PO (16:28)
[2023-04-04] MEDS ORDERED: AMLO-257 PO (16:28)
[2023-04-04 17:56] LABS: BASOPHILS % (AUTO) 1.3 % (0.0-2.0); EOSINOPHILS % (AUTO) 4.9 % (1.0-6.0); HEMATOCRIT 36.9 % (36-46); HEMOGLOBIN 12.4 g/dL (12.0-16.0); LYMPHOCYTES # (AUTO) 0.9 K/uL (1.0-4.8); LYMPHOCYTES % (AUTO) 25.3 % (22.0-44.0); MEAN CORPUSCULAR HEMOGLOBIN 32.4 pg (26.0-34.0); MEAN CORPUSCULAR HGB CONC 33.6 G/dL (31.0-37.0); MEAN CORPUSCULAR VOLUME 97 fL (80-100); MONOCYTES # (AUTO) 0.3 K/uL (0.1-1.0); MONOCYTES % (AUTO) 9.1 % (2.0-9.0); NEUTROPHILS % (AUTO) 59.4 % (40.0-70.0); PLATELET COUNT (AUTO) 115 K/uL (150-450); RED BLOOD CELL COUNT(AUTO) 3.83 MIL/uL (4.00-5.20); RED CELL DISTRIBUTION WIDTH 13.3 % (11.5-14.5); WHITE BLOOD COUNT (AUTO) 3.4 K/uL (4.5-11.0)
[2023-04-04 18:03] LABS: CALCIUM, TOTAL 9.9 mg/dL (8.8-10.5); CREATININE 1.43 mg/dL (0.60-1.30); POTASSIUM 4.3 mmol/L (3.5-5.1)
[2023-04-04 18:08] LABS: PROTHROMBIN TIME 10.8 SEC (9.4-11.6)
[2023-04-04 18:10] LABS: ALBUMIN 3.9 g/dL (3.4-5.0); BILIRUBIN,TOTAL 0.3 mg/dL (0.1-1.0); TOTAL PROTEIN, SERUM 7.5 g/dL (6.4-8.2)
[2023-04-04] MEDS ORDERED: ASPI-1444 PO (18:42)
[2023-04-04] MEDS ORDERED: CHOL100062 PO (18:44)
[2023-04-04] MEDS ORDERED: PANT40TA54 PO (18:44)
[2023-04-04] MEDS ORDERED: FLUT16H NASAL (18:44)
[2023-04-04] MEDS ORDERED: AZEL6DRO5 OU (18:44)
[2023-04-04] MEDS ORDERED: ACET-66 PO (18:44)
[2023-04-04] MEDS ORDERED: LOSA100T59 PO (18:45)
[2023-04-04 19:11] VITALS: BP 136/63; PULSE 84; RESP 18; TEMP 98.2
[2023-04-04] MEDS ORDERED: DOCU-385 PO (19:14)
[2023-04-04] MEDS ORDERED: PROCTOCM PR (19:14)
== END 2023-04-04 19:33 | disposition home or self-care (01) ==
LOC: EMS 16:07
DX: K64.9 Unspecified hemorrhoids (principal); K60.2 Anal fissure, unspecified; F32.A Depression, unspecified; E11.9 Type 2 diabetes mellitus without complications; I10 Essential (primary) hypertension; Z87.891 Personal history of nicotine dependence
CPT/HCPCS: 80053; 83690; 85025; 85610; 85730; 86850; 86900; 86901; 93005; 99283